=== PATIENT | female | born 1995 | race Two or more races ===

== ENCOUNTER 2022-09-10 20:39 | Emergency (ER) | payer OTHER ==
[~2022-09-10] VITALS: Ht 165.1 cm; Wt 70.3 kg
--- NOTE | 2022-09-10 21:01 | NUR ---
[facility] AT PT'S BEDSIDE
[2022-09-10 21:03] VITALS: BP 136/74
--- NOTE | 2022-09-10 21:06 | NUR ---
URINE COLLECTED AND SENT TO LAB
--- NOTE | 2022-09-10 21:14 | NUR ---
DR. CHITRA LAMA AT PT'S BEDSIDE
[2022-09-10] MEDS ORDERED: IBUPROFEN 400 MG TABLET ONE (21:25)
[2022-09-10] MEDS ORDERED: IBUPROFEN 400 MG TABLET PO ONE (21:30)
--- NOTE | 2022-09-10 22:56 | NUR ---
PT REFUSING CT SCAN AND XRAY MADE AWARE
--- NOTE | 2022-09-10 23:04 | NUR ---
Patient discharged to home in stable condition. Written and verbal after care instructions given. Patient verbalizes understanding of instruction. Addendum: 09/10/22 at 2320 by JOEL Patient does not wish to proceed with medical care recommended by Dr. Wlid. Patient given information related to possible complications, up to and including , which could occur as a result of leaving the hospital at this time. Patient verbalizes understanding of risks involved due to leaving against medical advice. Patient has signed AMA form.
== END 2022-09-10 23:20 | disposition left against medical advice (07) ==
LOC: ER 20:47
DX: S05.12XA Contusion of eyeball and orbital tissues, left eye, initial encounter (principal); S40.012A Contusion of left shoulder, initial encounter; M25.512 Pain in left shoulder; Z59.00 Homelessness unspecified; Y04.2XXA Assault by strike against or bumped into by another person, initial encounter; Y93.89 Activity, other specified; Y92.89 Other specified places as the place of occurrence of the external cause; Y99.8 Other external cause status
CPT/HCPCS: 84703-TC